=== PATIENT | male | born 1960 | race Caucasian/White ===

== ENCOUNTER 2025-03-05 05:38 | Day surgery (SDC) | payer BC ==
[2025-02-28 13:14] VITALS: BMI 33.2
[2025-03-05] MEDS ORDERED: Lidocaine 1% w/Epinephrine 1:200K 30 ML VIAL ONE (06:39)
[2025-03-05] MEDS ORDERED: AFRIN NASAL MIST 15 ML BOT ONE (06:39)
[2025-03-05] MEDS ORDERED: PROPOFOL 40 ML ONE (06:48)
[2025-03-05] MEDS ORDERED: Ondansetron PF 4 MG/2 ML Vial ONE (06:48)
[2025-03-05] MEDS ORDERED: Lidocaine 1% PF 5 ML VIAL ONE (06:48)
[2025-03-05] MEDS ORDERED: Rocuronium Bromide 10 MG/ML (10ML VIAL) ONE (06:48)
[2025-03-05] MEDS ORDERED: SUGAMMADEX SODIUM 200 MG/2 ML VIAL ONE (06:48)
[2025-03-05] MEDS ORDERED: Bacitracin 1 PK ONE (06:49)
[2025-03-05] MEDS ORDERED: Oxymetazoline HCl 0.05% (15 ML) ONE (07:39)
== END 2025-03-05 08:55 | disposition home or self-care (01) ==
LOC: CSHSDC 05:38
PROVIDERS: ATTEND Otolaryngology Plastic Surgery within the Head & Neck
PROC: 09SM4ZZ Reposition Nasal Septum, Percutaneous Endoscopic Approach (ICD-10-PCS; principal; 2025-03-05)
PROC: 09TL8ZZ Resection of Nasal Turbinate, Via Natural or Artificial Opening Endoscopic (ICD-10-PCS; principal; 2025-03-05)
DX: J34.2 Deviated nasal septum (principal); J34.3 Hypertrophy of nasal turbinates; G47.33 Obstructive sleep apnea (adult) (pediatric); I10 Essential (primary) hypertension; E11.9 Type 2 diabetes mellitus without complications; E78.00 Pure hypercholesterolemia, unspecified; K21.9 Gastro-esophageal reflux disease without esophagitis; H91.90 Unspecified hearing loss, unspecified ear; Z79.82 Long term (current) use of aspirin; Z79.84 Long term (current) use of oral hypoglycemic drugs; Z79.85 Long-term (current) use of injectable non-insulin antidiabetic drugs; Z79.899 Other long term (current) drug therapy
CPT/HCPCS: 93005; 93010; J1100; J2405; J2704; J3010